=== PATIENT | female | born 1960 | race Hispanic/Latino ===

== ENCOUNTER 2023-09-22 08:39 | Observation (INO) | payer OTHER ==
[2023-09-16 11:38] LABS: BASOPHILS # (AUTO) 0.03 K/uL (0.00-0.20); BASOPHILS % (AUTO) 0.5 % (0.0-5.0); EOSINOPHILS # (AUTO) 0.19 K/uL (0.00-0.70); EOSINOPHILS % (AUTO) 2.9 % (0.0-8.0); HEMATOCRIT 44.1 % (36-48); IMMATURE GRANULOCYTE ABSOLUTE 0.01 K/uL (0-1); LYMPHOCYTES # (AUTO) 1.7 K/uL (1.0-4.8); LYMPHOCYTES % (AUTO) 25.7 % (21.0-51.0); MEAN CORPUSCULAR HEMOGLOBIN 31.6 pg (27.0-33.0); MEAN CORPUSCULAR HGB CONC 32.7 g/dL (32.0-36.0); MEAN CORPUSCULAR VOLUME 96.9 fL (79-99); MONOCYTES # (AUTO) 0.4 K/uL (0.1-1.0); MONOCYTES % (AUTO) 6.2 % (3.0-13.0); NEUTROPHILS # (AUTO) 4.2 K/uL (1.8-7.7); NEUTROPHILS % (AUTO) 64.5 % (40.0-77.0); PLATELET COUNT (AUTO) 147 K/uL (130-400); RED BLOOD CELL COUNT(AUTO) 4.55 MIL/uL (4.00-5.50); RED CELL DISTRIBUTION WIDTH 12.7 % (11.0-15.5); WHITE BLOOD COUNT (AUTO) 6.5 K/uL (4.8-10.8)
[2023-09-16 11:52] LABS: APPEARANCE,URINE CLEAR (CLEAR); BILIRUBIN,URINE NEGATIVE (NEGATIVE); COLOR,URINE LIGHT-YELLOW (YELLOW); GLUCOSE, URINE (UA) NEGATIVE (NEGATIVE); KETONES,URINE NEGATIVE (NEGATIVE); LEUKOCYTE ESTERASE ,URINE 25 Leu/uL (NEGATIVE); NITRATE,URINE NEGATIVE (NEGATIVE); OCCULT BLOOD,URINE NEGATIVE (NEGATIVE); PROTEIN,URINE NEGATIVE (NEGATIVE); UROBILINOGEN,URINE 0.2 mg/dL (0.2-1.0)
[2023-09-16 11:54] LABS: INR 0.95 (0.85-1.15); PROTHROMBIN TIME 11.2 SEC (9.6-11.6)
[2023-09-16 11:55] LABS: PARTIAL THROMBOPLASTIN TIME 25.8 SEC (26.3-35.5)
[2023-09-16 12:01] LABS: ADD UA MICROSCOPIC YES
[2023-09-16 12:04] LABS: BACTERIA,URINE RARE /HPF (None Seen); MUCUS,URINE RARE LPF (None Seen); SQUAMOUS EPITHELIAL CELL,UR FEW /HPF (0-2)
[2023-09-16 12:15] LABS: ALBUMIN 3.9 g/dL (3.5-5.0); CARBON DIOXIDE 28 mmol/L (21-32); CHLORIDE 104 mmol/L (101-111); GLOMERULAR FILTR. RATE CALC 63 mL/min (>90); GLUCOSE,RANDOM 84 mg/dL (70-105); POTASSIUM 3.8 mmol/L (3.5-5.1); SODIUM SERUM 139 mmol/L (136-145); UREA NITROGEN, BLOOD 20 mg/dL (7-18)
[~2023-09-22] VITALS: Ht 162.6 cm; Wt 93.4 kg
[2023-09-22] VITALS (33 sets, daily range): BP systolic 108–177; BP diastolic 58–102; PULSE 57–86; RESP 15–20; O2SAT 97–99
[~2023-09-22 08:39] MED LIST: ATOR10TA69 PO; CYAN25008 SL; GABA300C PO; LEVO25CA4 PO; METO-408 PO; TRAM50TA4 PO
[2023-09-22] MEDS: CEFAZOLIN SODIUM 2 GM VIAL ONE (09:22)
[2023-09-22] MEDS: 0.9%NACL 1000ML 1,000 ML IV ONE (09:27)
[2023-09-22] MEDS ORDERED: KETOROLAC 30MG VIAL (30MG/ML) ONE (09:39)
[2023-09-22] MEDS ORDERED: ROPIVACAINE 0.5% 5MG/ML 30ML ONE ×2 (09:40→10:32)
[2023-09-22] MEDS ORDERED: TRANEXAMIC ACID 1000MG/10ML ONE (10:16)
[2023-09-22] MEDS: FAMOTIDINE 20MG VIAL IV ONE (10:29)
[2023-09-22] MEDS: HYDROMORPHONE 1 MG INJ ONE (10:29)
[2023-09-22] MEDS ORDERED: GLYCOPYRROLATE 0.2 MG/ML 5 ML VIAL ONE (10:36)
[2023-09-22] MEDS ORDERED: ONDANSETRON 4MG INJ ONE (10:36)
[2023-09-22] MEDS ORDERED: LIDOCAINE PF 100MG/5ML (2%) SYRINGE 5ML ONE (10:36)
[2023-09-22] MEDS ORDERED: NEOSTIGMINE METHYLSULFATE 1MG/ML IV ONE (10:36)
[2023-09-22] MEDS ORDERED: MIDAZOLAM HCL 1 MG/ML 2ML VIAL ONE (10:36)
[2023-09-22] MEDS ORDERED: ROCURONIUM BROMIDE 10MG/1ML 5ML VL ONE (10:37)
[2023-09-22] MEDS ORDERED: NOREPINEPHRINE BITARTRATE 1 MG/1 ML ML IV ONE (10:37)
[2023-09-22] MEDS ORDERED: FENTANYL CITRATE PF 50 MCG/1 ML 2ML VIAL ONE (10:39)
[2023-09-22] MEDS ORDERED: PROPOFOL 10 MG/ML 20ML VIAL IV ONE (10:42)
[2023-09-22] MEDS: CEFAZOLIN SODIUM 2 GM VIAL IVPB ONE (12:00)
[2023-09-22] MEDS: KETOROLAC 30MG VIAL (30MG/ML) IJ ONE (13:15)
[2023-09-22] MEDS ORDERED: KCL 20 MEQ ERTAB PO PRN (14:00)
[2023-09-22] MEDS: 0.9%NACL 1000ML 1,000 ML IV SCH (14:00)
[2023-09-22] MEDS ORDERED: TRAMADOL HCL 50 MG TABLET PO PRN (14:00)
[2023-09-22] MEDS ORDERED: POTASSIUM CHLORIDE 20MEQ/100ML 100 ML IV PRN (14:00)
[2023-09-22] MEDS ORDERED: FERROUS FUMARATE 324 MG TABLET PO PRN (14:00)
[2023-09-22] MEDS ORDERED: POTASSIUM CHLORIDE 10% ELIXIR 20 MEQ/15 ML UDCUP PO PRN (14:00)
[2023-09-22] MEDS ORDERED: CALCIUM CARB 500MG PO PRN (14:00)
[2023-09-22] MEDS ORDERED: ONDANSETRON 4MG INJ IVP PRN (14:00)
[2023-09-22] MEDS: KETOROLAC 15MG/ML VIAL (15MG/ML) IV SCH (14:15)
[2023-09-22] MEDS: KETOROLAC 15MG/ML VIAL (15MG/ML) ONE (14:15)
[2023-09-22] MEDS: MEPERIDINE-PF 25 MG/ML SYG ONE (14:24)
[2023-09-22] MEDS: HYDRALAZINE 20MG/ML VIAL ONE (14:40)
[2023-09-22] MEDS: GABAPENTIN 300 MG CAPSULE PO SCH (20:53)
[2023-09-22] MEDS: ATORVASTATIN 10 MG TABLET PO SCH (20:53)
[2023-09-22] MEDS: CEFAZOLIN SODIUM 2 GM VIAL IVPB SCH (20:54)
[2023-09-22] MEDS: DOCUSATE SODIUM 100 MG CAP PO SCH (20:54)
[2023-09-23] VITALS (8 sets, daily range): BP systolic 98–173; BP diastolic 55–96; PULSE 70–92; RESP 16–19; O2SAT 95–96
[2023-09-23 03:38] LABS: HEMATOCRIT 35.7 % (36-48); MEAN CORPUSCULAR HEMOGLOBIN 31.7 pg (27.0-33.0); MEAN CORPUSCULAR HGB CONC 33.3 g/dL (32.0-36.0); MEAN CORPUSCULAR VOLUME 95.2 fL (79-99); RED BLOOD CELL COUNT(AUTO) 3.75 MIL/uL (4.00-5.50); RED CELL DISTRIBUTION WIDTH 12.8 % (11.0-15.5)
[2023-09-23 03:48] LABS: POTASSIUM 3.9 mmol/L (3.5-5.1)
[2023-09-23] MEDS: LEVOTHYROXINE 25 MCG TABLET PO SCH (06:39)
[2023-09-23] MEDS: ASPIRIN 325MG EC TAB PO SCH (08:26)
[2023-09-23] MEDS: METOPROLOL SUCCINATE 25 MG TAB.SR.24H PO SCH (08:26)
[2023-09-23] MEDS: POLYETHYLENE GLYCOL 3350 17 GM POWD.PACK PO SCH (08:26)
[2023-09-23] MEDS: HYDROCODONE/ACETAMINOPHEN 5/325 MG TAB PO PRN (08:29)
[2023-09-23] MEDS: VITAMIN B12 2500 MCG SL SCH (08:31)
[2023-09-23] MEDS ORDERED: NON-FORMULARY MEDICATION 1 EACH (Levothyroxine Sodium (Levothyroxine) 25 MCG) PO SCH (09:00)
[2023-09-23] MEDS: CYCLOBENZAPRINE HCL 10 MG TABLET PO PRN (16:12)
[2023-09-24 03:37] VITALS: BP 104/62; PULSE 79; RESP 16
[2023-09-24 08:00] VITALS: BP 104/72; PULSE 90; RESP 18
[2023-09-24 09:00] VITALS: O2SAT 97
[2023-09-24] MEDS: KETOROLAC 15MG/ML VIAL (15MG/ML) IV PRN (09:20)
[2023-09-24 12:00] VITALS: BP 94/59; PULSE 78; RESP 18
[2023-09-24 16:00] VITALS: BP 145/95; PULSE 80; RESP 19
[2023-09-24] MEDS ORDERED: CYCL-309 PO (16:54)
[2023-09-24] MEDS ORDERED: HYDR-4060 PO (16:54)
[2023-09-24] MEDS ORDERED: DOCU-116 PO (16:54)
[2023-09-24] MEDS ORDERED: APIX2.5T PO (16:54)
[2023-09-25] MEDS ORDERED: BISACODYL 10 MG SUPP.RECT RC PRN (14:00)
== END 2023-09-24 18:45 | disposition home or self-care (01) ==
LOC: DAH 08:39 → DAHIP 08:40 → DAH 08:40 → 4AH 16:30
PROVIDERS: ADMIT Student in an Organized Health Care Education/Training Program; ATTEND Student in an Organized Health Care Education/Training Program
DX: M17.11 Unilateral primary osteoarthritis, right knee (principal); G89.18 Other acute postprocedural pain; I48.91 Unspecified atrial fibrillation; I10 Essential (primary) hypertension; E03.9 Hypothyroidism, unspecified; E11.9 Type 2 diabetes mellitus without complications; M25.561 Pain in right knee; D62 Acute posthemorrhagic anemia; M25.512 Pain in left shoulder; E66.9 Obesity, unspecified; Z68.35 Body mass index [BMI] 35.0-35.9, adult; Z79.01 Long term (current) use of anticoagulants; Z95.3 Presence of xenogenic heart valve; Z79.899 Other long term (current) drug therapy; Z83.79 Family history of other diseases of the digestive system; Z82.49 Family history of ischemic heart disease and other diseases of the circulatory system; Z83.3 Family history of diabetes mellitus; Z79.891 Long term (current) use of opiate analgesic; Z79.890 Hormone replacement therapy; Z98.890 Other specified postprocedural states
CPT/HCPCS: 82040; 80048 ×2; 85025; 85610; 85730; 87088; 84134; 86140; 81001; 36415 ×2; 93005; 87641; 27447; 96365; 96375; 64447; 82948; 73560; 97161; 97116 ×5; 97530 ×5; 96376 ×2; 96366; 85027; G0378 ×48; A4663; J7030 ×2; A4215 ×2; J3490 ×5; J3010; J1170; J2001; J0360; J2250; J2704; J2405; J1885 ×6; J2710; J2175; J2795 ×3; J0690 ×4; G0168; C1776 ×2; A4649; C1713; A4930; A6255; A5120; A4223; A4213; A4222; A4221

== ENCOUNTER 2024-03-10 12:34 | Emergency (ER) | payer OTHER ==
[~2024-03-10] VITALS: Ht 165.1 cm; Wt 95.3 kg
[~2024-03-10 12:34] MED LIST changes: +APIX2.5T PO; +CYCL-309 PO; +DOCU-116 PO; +HYDR-4060 PO; -TRAM50TA4 PO
--- NOTE | 2024-03-10 13:05 | ERN ---
General Chief Complaint: Mechanical Fall Stated Complaint: FALL Time Seen by MD: 12:35 Source: patient History of Present Illness Initial Comments Patient is a 63-year-old female coming in to be evaluated after she slipped and hit herself in the left side of forehead. Patient does state that she hit herself in the head in his currently on Eliquis so decided to be evaluated. Allergies: Coded Allergies: No Known Drug Allergies (Unverified Allergy, Unknown, 09/16/23) Home Meds Active Scripts Apixaban (Eliquis) 2.5 Mg Tablet, 2.5 MG PO BID for 30 Days, #60 0 Refills Prov:WILLIAMS DUKES MD 09/24/23 Hydrocodone/Acetaminophen (Hydrocodon-Acetaminophen 5-325) 5 Mg-325 Mg Tablet, 1-2 TAB PO Q4H PRN for MODERATE/SEVERE PAIN LEVEL, #56 TAB 0 Refills Prov:WILLIAMS DUKES MD 09/24/23 Docusate Sodium (Colace) 100 Mg Capsule, 100 MG PO BID for 30 Days, #60 CAP 0 Refills Prov:WILLIAMS DUKES MD 09/24/23 Cyclobenzaprine HCl (Cyclobenzaprine HCl) 10 Mg Tablet, 5 MG PO Q8H PRN for MUSCLE SPASMS, #45 TAB 0 Refills Prov:WILLIAMS DUKES MD 09/24/23 Reported Medications Metoprolol Succinate (Metoprolol Succinate) 25 Mg Tab.er.24h, 50 MG PO AM, TAB 09/16/23 Cyanocobalamin (Vitamin B-12) (B-12) 2,500 Mcg Lozenge, 2500 MCG SL AM, CLAU 09/16/23 Levothyroxine Sodium (Levothyroxine) 25 Mcg Capsule, 25 MCG PO AM, CAP 09/16/23 Gabapentin (Neurontin) 300 Mg Capsule, 300 MG PO BID, CAP 09/16/23 Atorvastatin Calcium (Atorvastatin Calcium) 10 Mg Tablet, 10 MG PO HS, TAB 09/16/23 Past Medical History Past Medical History: Diabetes-Type II, High Cholesterol, Hypertension Past Surgical History: Other Surgical History Other: R KNEE SX ROS Dictation CONSTITUTIONAL: No chills, no fever, no weakness, no diaphoresis, no malaise. HEAD/FACE: No signs of trauma. EENT: No eye pain, no blurred vision, no tearing, no double vision, no ear pain, no ear discharge, no nose pain, no nasal congestion, no throat pain, no throat swelling, no mouth pain. RESPIRATORY: No cough, no orthopnea, no SOB, no stridor, no wheezing. CARDIOVASCULAR: No chest pain, no edema, no palpitations, no syncope. GASTROINTESTINAL/ABDOMINAL: No abdominal pain, no constipation, no diarrhea, no nausea, no vomiting. GENITOURINARY: No abnormal discharge, no dysuria, no frequent urination, no hematuria. No complaints of pain in the genitals. MUSCULOSKELETAL: No back pain, no gout, no joint pain, no joint swelling, no muscle pain, no muscle stiffness, no neck pain. INTEGUMENTARY: No change in color, no change in hair/nails, no dryness, no lesion, no lumps, no rash. NEUROLOGICAL/PSYCH: No anxiety, not depressed, no emotional problem, no headache, no numbness, no pre-existing deficit, no history of seizures, no tremors, no weakness. HEMATOLOGIC/LYMPHATIC: Not anemic, no history of blood clots, no apparent bleeding, no bruising, glands not swollen. All Systems Negative, Except as Noted. Physical Exam Physical Exam Dictation VITAL SIGNS: Reviewed. GENERAL APPEARANCE: Alert, oriented x3, no acute distress, obese. HEAD AND FACE: Non-traumatic. Left forehead erythema EYES: PERRL, pink conjunctivas, eyelid no trauma, anterior chamber clear. EARS: Pinnas intact and no signs of trauma or erythema. Ear canals clear and no discharge. TMs no erythema. NOSE: No discharge, no bleeding. OROPHARYNX: Mouth normal, teeth no caries, tongue pink. Pharynx clear, no erythema. Tonsils no exudates, no abscesses noted. Mucous membrane moist. NECK: Supple, non-tender, no thyromegaly, no masses, no JVD, no bruits. BREAST: Deferred. CHEST: No tenderness, no crepitus, no paradoxical movement, no retractions. LUNGS: Clear, well-ventilated, symmetric, no rales, no wheezing, no rhonchi, no stridor, good breath sounds bilaterally. HEART: Regular rate, regular rhythm, no murmur, no gallops. VASCULAR: No peripheral edema. ABDOMEN: Soft, positive bowel sounds, nondistended, no guarding, nontender, no rebound, no masses no hepatomegaly, no splenomegaly, no Velarde's sign, no hernia s. RECTAL: Deferred. GENITAL: Deferred. NEUROLOGICAL: Normal speech, gross motor function intact, gross sensory function intact. MUSCULOSKELETAL: Neck nontender, full range of motion, back nontender, full range of motion. No neck tenderness on palpation rotation EXTREMITIES: Nontender, full range of motion. SKIN: Color pink, dry, no turgor, no rash, no lacerations, no abrasions, no contusions. LYMPHATICS: Deferred. Results Laboratory and Microbiology Labs Reviewed?: Yes EKG/XRAY/US/CT/MRI X-RAY Comment [place] [id number] [address] IMAGING REPORT Signed PATIENT: ILEANA ROMERO MR#: [id number] : 1960 SEX: F AGE: 63 LOCATION: ED ORDER 35 STATUS: [facility] REPORT#: [id number] SERVICE 123 REASON: fall ORDERING PHYSICIAN: HELLEN COLLIER MD PROCEDURE: CXR1VW - CHEST 1VW CHEST 1VW REASON: fall COMPARISON: None. FINDINGS: Single view of the chest was obtained. Lungs are clear. There is mild cardiomegaly. There is no pulmonary vascular congestion. Mediastinum and bony thorax appear unremarkable. There is been a previous median sternotomy. IMPRESSION: 1. Mild cardiomegaly, no acute finding. DICTATED BY: ABBI KAUFMAN MD DATE: 03/10/24 1308 ELECTRONICALLY SIGNED BY: ABBI KAUFMAN MD DATE: 03/10/24 1311 [place] [id number] [address] IMAGING REPORT Signed PATIENT: ILEANA ROMERO MR#: [id number] : 1960 SEX: F AGE: 63 LOCATION: ED ORDER 1236 STATUS: [facility] REPORT#: [id number] SERVICE 1236 REASON: fall ORDERING PHYSICIAN: HELLEN COLLIER MD PROCEDURE: CERV 2 3VW - CERV SPINE 2-3VWS Exam: CERVICAL SPINE 2 VIEWS REASON: fall TECHNIQUE: 3 views were obtained. FINDINGS: There are normal appearing vertebral bodies. There is marked interspace narrowing through CT 6. There are degenerative changes in the facets. Vertebral body alignment is normal. There are no fractures. Soft tissues appear unremarkable. There are no visible fractures. Soft tissues appear unremarkable. IMPRESSION: 1. Marked cervical degenerative changes. DICTATED BY: ABBI KAUFMAN MD DATE: 03/10/24 1333 ELECTRONICALLY SIGNED BY: ABBI KAUFMAN MD DATE: 03/10/[address] Scan Comment IMAGING REPORT Signed PATIENT: ILEANA ROMERO MR#: [id number] : 1960 SEX: F AGE: 63 LOCATION: EDH ORDER 1236 STATUS: [facility] REPORT#: [id number] SERVICE 1236 REASON: fall ORDERING PHYSICIAN: HELLEN COLLIER MD PROCEDURE: HEAD WO - CT HEAD/BRAIN W/O CONTRAST Exam: NONCONTRAST CT BRAIN REASON: fall. COMPARISON: None. TECHNIQUE: Images are obtained from vertex to the skull base. The exam was performed without IV contrast. FINDINGS: There is normal appearing brain parenchyma. There are no focal mass lesions. There is is no evidence of intracranial hemorrhage or acute stroke. Ventricles and sulci appear normal. Posterior fossa and brainstem structures are unremarkable. Paranasal sinuses and remaining extracranial soft tissues appear normal as well. IMPRESSION: 1. Normal noncontrast CT brain. CT was performed with one or more following dose reduction techniques: automated exposure control, adjustment of the mA and kv according to patient's size, or use of a iterative reconstruction technique. DICTATED BY: ABBI KAUFMAN MD DATE: 03/10/24 1309 ELECTRONICALLY SIGNED BY: ABBI KAUFMAN MD DATE: 03/10/24 1311 [facility] MDM: Differential diagnosis: Fall, head contusion, ED Course Orders Procedure Category Date Status Time Ct Head/Brain W/O CT 03/10/24 Resulted Contrast 12:36 Chest 1vw RAD 03/10/24 Resulted 12:36 Cerv Spine 2-3vws RAD 03/10/24 Resulted 12:36 Vital Signs Date Time Temp Pulse Resp B/P (MAP) Pulse Ox O2 Delivery O2 Flow Rate FiO2 03/10/24 12:40 98.2 109 16 138/91 98 Room Air 0 Laceration/Wound Repair Laceration/Wound Repair : Wound Location: face Wound Length (cm): 1 Wound's Depth, Shape: superficial Wound Explored: clean Wound Repaired With: Steri-strips DX & DISP Disposition: Discharge Departure Impression: Primary Impression: Fall Additional Impression: Eyebrow laceration Condition: Stable Additional Instructions: FOLLOW-UP WITH PRIMARY CARE PROVIDER IN 1 TO 2 DAYS. TAKE MEDICATIONS DIRECTED HERE IN THE EMERGENCY ROOM. OKAY TO CONTINUE HOME MEDICATIONS UNLESS OTHERWISE DISCUSSED DURING YOUR VISIT IN THE EMERGENCY ROOM TODAY. RETURN TO YOUR NEAREST EMERGENCY ROOM IF SYMPTOMS WORSEN OR IF THERE IS NO IMPROVEMENT. CALL 911 IF YOU NEED IMMEDIATE ASSISTANCE. TAKE TYLENOL LUZE-LGB-GHQSFIA NEEDED AND IF NO CONTRAINDICATIONS ARE PRESENT. INCREASE ORAL HYDRATION. A WOUND CULTURE OR URINE CULTURE WAS ORDERED HERE IN THE EMERGENCY ROOM DEPARTMENT PLEASE FOLLOW-UP WITH PRIMARY CARE PROVIDER AND ADVISE THEM TO GET REPEAT PORTS FROM OUR FACILITY. IF YOU HAD ANY IRIS WRAP/SPLINTS THAT WERE APPLIED HERE, PLEASE DO NOT REMOVE THEM UNTIL YOU SEE YOUR PRIMARY CARE OR SPECIALTY. Referrals: Referrals: LATASHA TURCIOS MD (PCP) Time of Disposition: 14:09 HELLEN COLLIER MD Mar 10, 2024 13:05
--- NOTE | 2024-03-10 13:11 | HMCIMG ---
Exam: NONCONTRAST CT BRAIN REASON: fall. COMPARISON: None. TECHNIQUE: Images are obtained from vertex to the skull base. The exam was performed without IV contrast. FINDINGS: There is normal appearing brain parenchyma. There are no focal mass lesions. There is is no evidence of intracranial hemorrhage or acute stroke. Ventricles and sulci appear normal. Posterior fossa and brainstem structures are unremarkable. Paranasal sinuses and remaining extracranial soft tissues appear normal as well. IMPRESSION: 1. Normal noncontrast CT brain. CT was performed with one or more following dose reduction techniques: automated exposure control, adjustment of the mA and kv according to patient's size, or use of a iterative reconstruction technique.
--- NOTE | 2024-03-10 13:11 | HMCIMG ---
CHEST 1VW REASON: fall COMPARISON: None. FINDINGS: Single view of the chest was obtained. Lungs are clear. There is mild cardiomegaly. There is no pulmonary vascular congestion. Mediastinum and bony thorax appear unremarkable. There is been a previous median sternotomy. IMPRESSION: 1. Mild cardiomegaly, no acute finding.
--- NOTE | 2024-03-10 13:37 | HMCIMG ---
Exam: CERVICAL SPINE 2 VIEWS REASON: fall TECHNIQUE: 3 views were obtained. FINDINGS: There are normal appearing vertebral bodies. There is marked interspace narrowing through CT 6. There are degenerative changes in the facets. Vertebral body alignment is normal. There are no fractures. Soft tissues appear unremarkable. There are no visible fractures. Soft tissues appear unremarkable. IMPRESSION: 1. Marked cervical degenerative changes.
[2024-03-10 14:55] VITALS: BP 164/90; PULSE 78; RESP 18; TEMP 98.2; O2SAT 98
== END 2024-03-10 14:56 | disposition home or self-care (01) ==
LOC: EDH 12:34
DX: S01.112A Laceration without foreign body of left eyelid and periocular area, initial encounter (principal); E11.9 Type 2 diabetes mellitus without complications; E78.00 Pure hypercholesterolemia, unspecified; I10 Essential (primary) hypertension; Z79.01 Long term (current) use of anticoagulants; Z98.890 Other specified postprocedural states; W01.198A Fall on same level from slipping, tripping and stumbling with subsequent striking against other object, initial encounter; Y93.89 Activity, other specified; Y92.89 Other specified places as the place of occurrence of the external cause; Y99.8 Other external cause status
CPT/HCPCS: 70450; 71045; 72040; 99284

== ENCOUNTER 2024-03-15 05:57 | Day surgery (SDC) | payer OTHER ==
[2024-03-14 13:00] LABS: BASOPHILS # (AUTO) 0.02 K/uL (0.00-0.20); BASOPHILS % (AUTO) 0.3 % (0.0-5.0); EOSINOPHILS # (AUTO) 0.11 K/uL (0.00-0.70); EOSINOPHILS % (AUTO) 1.8 % (0.0-8.0); HEMATOCRIT 45.4 % (36-48); IMMATURE GRANULOCYTE ABSOLUTE 0.01 K/uL (0-1); LYMPHOCYTES # (AUTO) 1.1 K/uL (1.0-4.8); LYMPHOCYTES % (AUTO) 18.1 % (21.0-51.0); MEAN CORPUSCULAR HEMOGLOBIN 29.8 pg (27.0-33.0); MEAN CORPUSCULAR HGB CONC 30.2 g/dL (32.0-36.0); MEAN CORPUSCULAR VOLUME 98.7 fL (79-99); MONOCYTES # (AUTO) 0.4 K/uL (0.1-1.0); NEUTROPHILS # (AUTO) 4.6 K/uL (1.8-7.7); NEUTROPHILS % (AUTO) 73.6 % (40.0-77.0); PLATELET COUNT (AUTO) 163 K/uL (130-400); RED CELL DISTRIBUTION WIDTH 13.2 % (11.0-15.5); WHITE BLOOD COUNT (AUTO) 6.2 K/uL (4.8-10.8)
[2024-03-14 13:15] LABS: CREATININE 1.2 mg/dL (0.5-1.0); POTASSIUM 4.4 mmol/L (3.5-5.1)
[2024-03-14 13:16] VITALS: PULSE 94; RESP 18; TEMP 97.4
[2024-03-14 13:33] LABS: B-TYPE NATRIURETIC PEPTIDE 72 pg/mL (0-100)
[2024-03-15] VITALS (13 sets, daily range): BP systolic 142–170; BP diastolic 91–112; PULSE 65–93; RESP 16–17; TEMP 97.2–98
[~2024-03-15] VITALS: Ht 162.6 cm; Wt 91.8 kg
[~2024-03-15 05:57] MED LIST changes: -APIX2.5T PO; +APIX5TAB PO; +CETI10TA57 PO; -CYAN25008 SL; -CYCL-309 PO; -DOCU-116 PO; +FLEC50TA3 PO; -HYDR-4060 PO; -LEVO25CA4 PO; +LEVO25TA54 PO; -METO-408 PO; +VITAMIN B12 PO
--- NOTE | 2024-03-15 06:36 | EKG ---
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
[2024-03-15] MEDS: 0.9%NACL 1000ML 1,000 ML IV ONE (07:51)
[2024-03-15] MEDS: MIDAZOLAM HCL 1 MG/ML 2ML VIAL IVP ONE (08:32)
[2024-03-15] MEDS: FENTanyl CITRate PF 50 MCG/1 ML 2ML VIAL IVP ONE (08:32)
--- NOTE | 2024-03-15 08:50 | PRN ---
Procedure: [facility] Cardioversion Procedure Note DATE OF PROCEDURE: Mar 15, 2024 PROCEDURE PERFORMED: DIRECT-CURRENT CARDIOVERSION, CONSCIOUS SEDATION PREFORMING PHYSICIAN: Dr. Cody Gonzalez, [facility] INDICATION: Persistent atrial fibrillation PROCEDURE NOTE: After informed consent was obtained, and time-out procedure performed, as well as verification of resuscitative equipment availability, the patient was sedated with 2 mg of Versed and 50 mcg of fentanyl administered in incremental doses. When adequate sedation was obtained the patient underwent direct-current cardioversion with 200 J of synchronized, biphasic, direct-current energy to sinus rhythm. The patient tolerated the procedure well. There were no immediate complications noted. COMPLICATIONS: None, the patient tolerated the procedure well and there were no immediate comp lications noted. She persisted in sinus rhythm for several minutes of monitoring at bedside and this was confirmed on twelve-lead EKG. DISCHARGE RECOMMENDATIONS: Continue home medications, including flecainide 50 mg twice a day. Follow-up at [facility] within 1 week, with an EKG on arrival. CODY GONZALEZ MD Mar 15, 2024 08:50
--- NOTE | 2024-03-15 08:52 | NUR ---
CARDIOVERSION PROCEDURE 0825 - TIME OUT, DOMINGO EPSTEIN RN, [facility] PRESENT 0830 - VERSED 1 GM, FENTANYL 50 MCG, IVP 0832 - VERSED 1 GM, FENTANYL 50 MCG, IVP 0834 - CARDIOVERSION 200 JOULES 0835 - PT AWAKE, ALERT AND ORIENTED
--- NOTE | 2024-03-15 09:31 | EKG ---
[facility] Test Date: 2024-03-15 Test Time: 09:35:30 Pat Name: ILEANA ROMERO Department: [facility] Room: [facility] Gender: F Studio Grip: [id number] : 1960 Requested By: BYRON GONZALEZ Order Number: [id number] Reading MD: Radha Magana Measurements Intervals [place] Rate: 66 P: 39 MD: 234 QRS: 31 QRSD: 85 T: 65 QT: 453 QTc: 474 Interpretive Statements Sinus rhythm Prolonged MD interval Low voltage, precordial leads Compared to ECG 03/15/2024 07:22:42 First degree AV block now present Low QRS voltage now present Atrial fibrillation no longer present Prolonged QT interval no longer present Electronically Signed On 03-16-2024 17:34:46 RESPIRATORY CARE PRACTITIONER by Radha Magana Please click the below link to view image of tracing.
== END 2024-03-15 09:50 | disposition home or self-care (01) ==
LOC: DAH 05:57
PROVIDERS: ATTEND Internal Medicine Cardiovascular Disease
DX: I48.19 Other persistent atrial fibrillation (principal); I48.0 Paroxysmal atrial fibrillation; I44.0 Atrioventricular block, first degree; I10 Essential (primary) hypertension; E11.9 Type 2 diabetes mellitus without complications; E03.9 Hypothyroidism, unspecified; E66.9 Obesity, unspecified; Z90.710 Acquired absence of both cervix and uterus; Z90.49 Acquired absence of other specified parts of digestive tract; Z95.3 Presence of xenogenic heart valve; Z68.35 Body mass index [BMI] 35.0-35.9, adult; Z79.01 Long term (current) use of anticoagulants; Z79.899 Other long term (current) drug therapy
CPT/HCPCS: 83735; 80048; 83880; 85025; 36415; 92960; 93005 ×2; J3010; J7030; J2250; A4615; A4215; A4223 ×3; A7002; A4222; A4221; A4663; A4216; A4606; 99152; G0500

== ENCOUNTER 2024-03-29 09:34 | Day surgery (SDC) | payer OTHER ==
[2024-03-27 13:46] LABS: BASOPHILS # (AUTO) 0.01 K/uL (0.00-0.20); BASOPHILS % (AUTO) 0.2 % (0.0-5.0); EOSINOPHILS # (AUTO) 0.16 K/uL (0.00-0.70); EOSINOPHILS % (AUTO) 2.6 % (0.0-8.0); HEMATOCRIT 43.5 % (36-48); IMMATURE GRANULOCYTE ABSOLUTE 0.01 K/uL (0-1); LYMPHOCYTES # (AUTO) 1.4 K/uL (1.0-4.8); LYMPHOCYTES % (AUTO) 22.3 % (21.0-51.0); MEAN CORPUSCULAR HEMOGLOBIN 29.2 pg (27.0-33.0); MEAN CORPUSCULAR HGB CONC 31.3 g/dL (32.0-36.0); MEAN CORPUSCULAR VOLUME 93.3 fL (79-99); MONOCYTES # (AUTO) 0.5 K/uL (0.1-1.0); MONOCYTES % (AUTO) 7.3 % (3.0-13.0); NEUTROPHILS # (AUTO) 4.1 K/uL (1.8-7.7); NEUTROPHILS % (AUTO) 67.4 % (40.0-77.0); PLATELET COUNT (AUTO) 175 K/uL (130-400); RED BLOOD CELL COUNT(AUTO) 4.66 MIL/uL (4.00-5.50); WHITE BLOOD COUNT (AUTO) 6.1 K/uL (4.8-10.8)
[2024-03-27 13:54] LABS: CREATININE 1.2 mg/dL (0.5-1.0); POTASSIUM 4.3 mmol/L (3.5-5.1)
[2024-03-27 13:56] VITALS: BP_SYST 160; BP_SYST 189; BP_DIAS 101; BP_DIAS 86; PULSE 93; RESP 16; TEMP 97.3
[2024-03-27 13:57] LABS: INR 1.11 (0.85-1.15); PROTHROMBIN TIME 11.9 SEC (9.6-11.6)
[2024-03-27 13:58] LABS: PARTIAL THROMBOPLASTIN TIME 30.2 SEC (26.3-35.5)
[~2024-03-29] VITALS: Ht 160 cm; Wt 93.1 kg
[~2024-03-29 09:34] MED LIST changes: -CETI10TA57 PO; +CETI10TA87 PO; +FLEC100T3 PO; -FLEC50TA3 PO
--- NOTE | 2024-03-29 09:59 | EKG ---
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
[2024-03-29] MEDS ORDERED: FENTanyl CITRate PF 50 MCG/1 ML 2ML VIAL IVP ONE (10:00)
[2024-03-29] MEDS ORDERED: MIDAZOLAM HCL 1 MG/ML 2ML VIAL IVP ONE (10:00)
--- NOTE | 2024-03-29 11:00 | NUR ---
DR. GONZALEZ/LINO PA MADE AWARE SAW PTS NSR EKG. PER LINO GONZALEZ WILL SPEAK WITH THE PT AND WILL BE OK TO DISCHARGED.
--- NOTE | 2024-03-29 11:01 | NUR ---
PT AND FAMILY MEMBER AT BEDSIDE EXPLAINED CURRENT EKG AND PT TOLD TO CONTINUE HER CURRENT RX REGIMENT
--- NOTE | 2024-03-29 11:30 | NUR ---
PT OK TO BE DISCHARGED HOME AND FOLLOW UP WITH DR. GONZALEZ SCHEDULED.
== END 2024-03-29 11:34 | disposition home or self-care (01) ==
LOC: DAH 09:34
PROVIDERS: ATTEND Internal Medicine Cardiovascular Disease
DX: I48.19 Other persistent atrial fibrillation (principal); I10 Essential (primary) hypertension; E03.9 Hypothyroidism, unspecified; E11.9 Type 2 diabetes mellitus without complications; E66.9 Obesity, unspecified; Z90.49 Acquired absence of other specified parts of digestive tract; Z90.710 Acquired absence of both cervix and uterus; Z68.35 Body mass index [BMI] 35.0-35.9, adult; Z79.899 Other long term (current) drug therapy; Z53.8 Procedure and treatment not carried out for other reasons
CPT/HCPCS: 36415; 80048; 85025; 85610; 85730; 93005

== ENCOUNTER 2024-06-12 08:35 | Observation (INO) | payer OTHER ==
[2024-06-07 12:25] LABS: BASOPHILS # (AUTO) 0.03 K/uL (0.00-0.20); BASOPHILS % (AUTO) 0.5 % (0.0-5.0); EOSINOPHILS # (AUTO) 0.17 K/uL (0.00-0.70); EOSINOPHILS % (AUTO) 2.9 % (0.0-8.0); HEMATOCRIT 42.7 % (36-48); IMMATURE GRANULOCYTE ABSOLUTE 0.02 K/uL (0-1); LYMPHOCYTES # (AUTO) 1.1 K/uL (1.0-4.8); LYMPHOCYTES % (AUTO) 19.3 % (21.0-51.0); MEAN CORPUSCULAR HEMOGLOBIN 29.7 pg (27.0-33.0); MEAN CORPUSCULAR HGB CONC 32.6 g/dL (32.0-36.0); MEAN CORPUSCULAR VOLUME 91.2 fL (79-99); MONOCYTES # (AUTO) 0.5 K/uL (0.1-1.0); MONOCYTES % (AUTO) 7.7 % (3.0-13.0); NEUTROPHILS # (AUTO) 4.1 K/uL (1.8-7.7); NEUTROPHILS % (AUTO) 69.3 % (40.0-77.0); PLATELET COUNT (AUTO) 191 K/uL (130-400); RED BLOOD CELL COUNT(AUTO) 4.68 MIL/uL (4.00-5.50); RED CELL DISTRIBUTION WIDTH 14.6 % (11.0-15.5); WHITE BLOOD COUNT (AUTO) 5.9 K/uL (4.8-10.8)
[2024-06-07 12:27] LABS: APPEARANCE,URINE CLEAR (CLEAR); BILIRUBIN,URINE NEGATIVE (NEGATIVE); COLOR,URINE LIGHT-YELLOW (YELLOW); GLUCOSE, URINE (UA) NEGATIVE (NEGATIVE); KETONES,URINE NEGATIVE (NEGATIVE); LEUKOCYTE ESTERASE ,URINE NEGATIVE Leu/uL (NEGATIVE); NITRATE,URINE NEGATIVE (NEGATIVE); OCCULT BLOOD,URINE NEGATIVE (NEGATIVE); PH,URINE 6.5 (5.0-8.0); PROTEIN,URINE NEGATIVE (NEGATIVE); UROBILINOGEN,URINE 0.2 mg/dL (0.2-1.0)
[2024-06-07 12:40] LABS: PROTHROMBIN TIME 11.2 SEC (9.6-11.6)
[2024-06-07 12:42] LABS: PARTIAL THROMBOPLASTIN TIME 27.6 SEC (26.3-35.5)
[2024-06-07 12:43] LABS: ADD UA MICROSCOPIC NO
[2024-06-07 12:43] LABS: POTASSIUM 4.2 mmol/L (3.5-5.1)
[2024-06-07 13:07] VITALS: BP 193/102; PULSE 77; RESP 16; TEMP 98.1
[~2024-06-12] VITALS: Ht 162.6 cm; Wt 98.3 kg
[2024-06-12] VITALS (36 sets, daily range): BP systolic 88–184; BP diastolic 54–101; PULSE 71–99; RESP 15–19; TEMP 97.1–98.4; O2SAT 97
[~2024-06-12 08:35] MED LIST changes: +ACET-2743 PO; -FLEC100T3 PO; +FLEC50TA3 PO
[2024-06-12] MEDS ORDERED: TRANEXAMIC ACID 1000MG/10ML ONE (09:38)
[2024-06-12] MEDS: 0.9%NACL 1000ML 1,000 ML IV ONE (09:51)
[2024-06-12] MEDS: ceFAZolin SODIUM 2 GM VIAL ONE (09:51)
[2024-06-12] MEDS ORDERED: LIDOCAINE HCL-MPF 2% 10ML AMP IJ ONE (10:15)
[2024-06-12] MEDS ORDERED: rocuRONium bROMide 10MG/1ML 5ML VL ONE (10:16)
[2024-06-12] MEDS ORDERED: FENTanyl CITRate PF 50 MCG/1 ML 2ML VIAL ONE (10:16)
[2024-06-12] MEDS ORDERED: proPOFol 10 MG/ML 20ML VIAL IV ONE (10:16)
[2024-06-12] MEDS ORDERED: ROPivacaine 0.5% 5MG/ML 30ML ONE (10:22)
[2024-06-12] MEDS ORDERED: ketaMINE 50MG/ML SYRINGE 50 MG/ML DISP.SYRIN ONE (10:22)
[2024-06-12] MEDS ORDERED: dexaMETHasone SOD PHOSPHATE 10MG/ML 1ML VIAL ONE (10:55)
[2024-06-12] MEDS ORDERED: ondanSETRON 4MG INJ ONE (10:55)
[2024-06-12] MEDS ORDERED: phenylEPHRINE HCL 10 MG/ML 1ML VIAL IV ONE (11:14)
[2024-06-12] MEDS ORDERED: FERROUS FUMARATE 324 MG TABLET PO PRN (11:30)
[2024-06-12] MEDS ORDERED: DiphenhydrAMINE HCL 50 MG/ML VIAL IVP PRN (11:30)
[2024-06-12] MEDS ORDERED: traMADol HCL 50 MG TABLET PO PRN (11:30)
[2024-06-12] MEDS ORDERED: PoTASSium chl 10% ELIXIR 20MEQ 20 MEQ/15 ML UDCUP PO PRN (11:30)
[2024-06-12] MEDS ORDERED: PoTASSium chloRIDE 20MEQ ER 20 MEQ ERTAB PO PRN (11:30)
[2024-06-12] MEDS ORDERED: PoTASSium chloRIDE 20MEQ/100ML 100 ML IV PRN (11:30)
[2024-06-12] MEDS ORDERED: ondanSETRON 4MG INJ IVP PRN (11:30)
[2024-06-12] MEDS ORDERED: CALCIUM CARB 500MG PO PRN (11:30)
[2024-06-12] MEDS: ketOROlac 30MG VIAL (30MG/ML) ONE (12:45)
[2024-06-12] MEDS: ROPivacaine 0.5% 5MG/ML 30ML ONE (12:45)
[2024-06-12] MEDS ORDERED: GLYCOPYRROLATE 0.2 MG/ML 5 ML VIAL ONE (13:10)
[2024-06-12] MEDS ORDERED: NEOSTIGMINE METHYLSULFATE 1MG/ML IV ONE (13:10)
[2024-06-12] MEDS ORDERED: hydrALAZine 20MG/ML VIAL ONE (13:18)
--- NOTE | 2024-06-12 13:34 | OP ---
Operative Note: DATE OF PROCEDURE: 06/12/24 PREOPERATIVE DIAGNOSIS: Left knee osteoarthritis. POSTOPERATIVE DIAGNOSIS: Left knee osteoarthritis. PROCEDURE PERFORMED: Left knee total knee arthroplasty. SURGEON: Osiris Oro MD DRAPERY ROD ASSEMBLER: Karsten westbrook. ANESTHESIA: General with adductor canal block. ANESTHESIA: NURIS Bella. ESTIMATED BLOOD LOSS: 75 cc. COMPLICATIONS: None. DRAINS: None. SPECIMENS REMOVED: resected bone. Not sent to pathology. IMPLANTS: [employer] Journey II BCS size 4 Oxinium femur, size 4 tibial base plate, 29 mm patella, 12 mm polyethylene STATEMENT OF MEDICAL NECESSITY: The patient is a 64-year-old female who suffers from left knee osteoarthritis failing conservative management. After discussion of the risks, benefits, and alternatives with the patient, they voluntarily agreed to undergo the aforementioned procedure. DESCRIPTION OF PROCEDURE: Patient was properly identified in the preoperative holding area. Surgical site marking was verified and surgery consent reviewed. The patient was then taken to the operating room and placed in supine position on the OR table. After induction of general anesthesia, preoperative antibiotics were given, all bony prominences were well-padded, and a well padded tourniquet was applied but not inflated at this time. The left lower extremity was then prepped and draped in usual sterile fashion. Surgical time out was done verifying correct surgery, side, site, and location to be performed. We then began the procedure by exsanguinating the limb using an Esmarch and inflating the tourniquet to 350 mmHg. At this point, we made an anterior midline incision using a 10 blade, coming down sharply the level of the fascia. Skin flaps were elevated medially and laterally. We then obtained a clean 10 blade and performed a standard medial parapatellar arthrotomy. We excised the infrapatellar fat pad. We performed our soft tissue releases off of the tibia. We transected the ACL and removed the anterior portion of the medial & lateral meniscus. We then brought the knee into hyperflexion with the patella everted. We used our entry reamer to enter the femoral canal. We then placed our intramedullary cutting guide for our distal femoral cutting block. We then performed our distal femoral osteotomy ensuring appropriate rotation and removed the bony wafer. We then removed these pins and block and then used jig 2 to size the distal femur with the after mentioned size found. We then placed our 5-in-1 cutting block in 3 degrees of external rotation and took our 5 cuts ensuring to protect the patellar tendon and the collateral ligaments. We then removed the cutting block and our bony fragments using a curved osteotome. We then placed our PCL retractor subluxating the tibia anteriorly. Using an extra medullary tibial cutting guide, we hung the block for our proximal tibial cut taking 2 mm off the more diseased portion. Prior to pinning this block in place, we ensured appropriate varus/valgus alignment and posterior slope similar to the minto slope of the patient's knee. We then performed our proximal tibial osteotomy and removed the bony wafer using Bovie electrocautery to release any remaining soft tissue attachments. We then used our tibial sizing paddle and checked once more for varus & valgus alignment and found this to be appropriate. At this point, we pinned our tibial paddle in place. We then removed the PCL retractor and subluxated the tibia posteriorly while we placed our femoral trial component. We then finished preparing the notch with the reamer and box chisel. The notch portion of the trial femoral component was then placed. A posterior stabilized polyethylene, size 9 trial was placed. This was immediately increased up to a size 11 due to laxity with varus and valgus stress. The knee was then taken through range of motion and found to have stable full range of motion. We then placed a bump under the ankle and everted the patella to perform our freehand cut of the undersurface the patella. We then sized our patella and reamed to the lug holes for this. We placed our trial patellar component and begin to take the knee through range of motion. The patella had significant lateral tracking and we performed a lateral release. At this point we began removing our trial components and punched the tibial keel prior to removing our tibial trial component. Final components were opened and cement was mixed on the back table while we injected local cocktail in the posterior capsule. We then thoroughly irrigated out the bone and dried the bony surfaces. We cemented our tibial component in place ensuring to remove excess cement and placed our trial polyethylene. We then cemented our femoral component in place once again taking time to ensure excess cement was removed leg was brought into full extension to help squeeze the excess cement from around the femoral component. We then brought the knee back in a flexion to remove this portion of the cement at this point we placed the ankle in a bump thoroughly irrigated off the patellar component and cemented our patellar component in standard fashion again removing excess cement. While we waited for the cement to cure, we thoroughly irrigated out the wound with normal saline. Once our cement had cured, we took the knee through a range of motion and found full and stable range of motion. We then elected to use the size 12 polyethylene and removed our trial polyethylene. We impacted our final polyethylene component in place in standard fashion and took the knee through a range of motion check once more. This was satisfactory so we began to repair the arthrotomy using #1 Vicryl in interrupted [id number] fashion. Subcutaneous tissue was repaired using 2-0 Vicryl. Running subcuticular 3-0 Monocryl stitch with Dermabond placed over this for the skin. We then applied a foam barrier dressing and a pressure dressing consisting of 4 x 4's fluffs and an David wrap. The tourniquet was then deflated. Patient was awakened from anesthesia, and they were taken to the recovery room in stable condition. OSIRIS ORO MD Jun 12, 2024 13:34
[2024-06-12] MEDS: FENTanyl CITRate PF 50 MCG/1 ML 2ML VIAL ONE (14:00)
[2024-06-12] MEDS: HYDROcodone/APAP 5/325 1 TAB TABLET ONE (14:25)
[2024-06-12] MEDS: ketOROlac 15MG/ML VIAL (15MG/ML) ONE ×2 (14:33→21:11)
[2024-06-12] MEDS: CYCLOBENZAPRINE HCL 10 MG TABLET PO PRN (14:36)
--- NOTE | 2024-06-12 14:43 | HMCIMG ---
KNEE/PATELLA 1-2VWS LT REASON: S/P LEFT TKA SURGERY TECHNIQUE: 2 views were obtained. FINDINGS: There is a total joint prosthesis in place left knee. Remaining bone appears unremarkable. There are surgical changes in the soft tissues. There are no foreign bodies. IMPRESSION: 1. Documentation of left knee total joint replacement procedure.
[2024-06-12] MEDS: GABApentin 100 MG CAPSULE PO SCH (14:55)
--- NOTE | 2024-06-12 15:22 | DS ---
Discharge Summary Hospital Course Summary: The patient was admitted to the hospital postoperatively on 06/12/2024 after undergoing left total knee arthroplasty. They did well with routine postoperative pain control. They worked well with physical therapy. They developed some acute blood loss anemia but remained asymptomatic. The hospital course was otherwise uncomplicated. They were subsequently able to be discharged on postoperative day [] once discharge arrangements were made with home health physical therapy. Mixing Plant Operator(s): None Procedure(s): Left total knee arthroplasty, 06/12/2024 Assessment/Plan: ASSESSMENT: Status post left total knee arthroplasty Acute blood loss anemia PLAN: See discharge instructions Discharge Instructions: Begin working with home health physical therapy. Dressing may be removed 06/14/2024 and left open to air. Showers ok allowing soap and water to run over the wound. Pat dry. Do not submerge wound in tub/pool. Do not apply ointments. Do not apply Betadine. Do not apply peroxide. Ice packs to decrease pain/swelling. Prescriptions have been sent to the pharmacy: *[place] 5/325mg 1-2 tab every 6 hours as needed for severe pain. (please call for refills) Cyclobenzaprine 5mg 1 tab every 8 hours as needed for muscle spasm pain. Colace 100mg 1 tab orally twice a day as needed for constipation. Resume your home dose of Eliquis to prevent blood clots. Meloxicam 0.5 mg one tab daily for edema. Call for a follow-up appointment in 2-3 weeks at [facility]. Home Medications: Active Scripts Hydrocodone/Acetaminophen (Hydrocodon-Acetaminophen 5-325) 5 Mg-325 Mg Tablet, 1-2 TAB PO Q4H PRN for MODERATE/SEVERE PAIN LEVEL, #56 TAB 0 Refills Prov:WILLIAMS DUKES MD 06/15/24 Reported Medications Acetaminophen (Tylenol Extra Strength) 500 Mg Tablet, 1000 MG PO AD PRN for PAIN, TAB 06/07/24 Flecainide Acetate (Flecainide Acetate) 50 Mg Tablet, 50 MG PO BID, TAB 06/07/24 Cetirizine HCl (Cetirizine HCl) 10 Mg Tab.chew, 1 TAB PO DAILY for allergy symptoms for 30 Days, #30 TAB 0 Refills 03/27/24 Levothyroxine Sodium (Levothyroxine Sodium) 25 Mcg Tablet, 25 MCG PO ACBKFST, TAB 03/14/24 [Vitamin B12] No Conflict Check, 1000 MCG PO DAILY 03/14/24 Apixaban (Eliquis) 5 Mg Tablet, 5 MG PO BID, TAB 03/14/24 Gabapentin (Neurontin) 300 Mg Capsule, 300 MG PO TID, CAP 09/16/23 Atorvastatin Calcium (Atorvastatin Calcium) 10 Mg Tablet, 10 MG PO HS, TAB 09/16/23 WILLIAMS DUKES MD Jun 12, 2024 15:22
[2024-06-12] MEDS ORDERED: ceFAZolin SODIUM 2 GM VIAL IVP SCH (16:30)
[2024-06-12] MEDS: INSULIN humuLIN R 100 UNIT/ML 3ML SQ SCH (16:30)
[2024-06-12] MEDS: acetaMINOPHEN 100 ML ONE (17:02)
[2024-06-12] MEDS: FAMOTIDINE 20MG VIAL IV ONE (17:02)
[2024-06-12] MEDS: ketOROlac 15MG/ML VIAL (15MG/ML) IV SCH ×2 (17:03→21:09)
[2024-06-12] MEDS: GABAPENTIN 300 MG CAPSULE PO SCH (17:03)
[2024-06-12] MEDS: 0.9%NACL 1000ML 1,000 ML IV SCH (17:20)
[2024-06-12] MEDS ORDERED: PHARMACY COMMUNICATION MISC SCH (17:30)
--- NOTE | 2024-06-12 17:55 | NUR ---
PT eval completed. Pt is 5/10 pain prior to eval. Pt wishes to transfer to commode. Eval completed. Pt is min assist x 2 for stand and transfer, min x1 for gait 15 ft. Pt able to urinate. Pt back to bed with call rivera, fall alarm, SCD and ice. Education provided on POC, DC plan, pain management and fall risk. Pt voices understanding. Pt has tray present and family.
[2024-06-12] MEDS: FLECAINIDE ACETATE 100 MG TABLET PO SCH (20:59)
[2024-06-12] MEDS: doCUSate SODIUM 100 MG CAP PO SCH (20:59)
[2024-06-12] MEDS: ceFAZolin SODIUM 2 GM VIAL IVP SCH (20:59)
[2024-06-12] MEDS: atorVAStatin 10 MG TABLET PO SCH (20:59)
[2024-06-12] MEDS ORDERED: ketOROlac 15MG/ML VIAL (15MG/ML) IV SCH (21:00)
[2024-06-12] MEDS: HYDROcodone/APAP 5/325 1 TAB TABLET PO PRN (22:55)
[2024-06-13] VITALS (8 sets, daily range): BP systolic 87–114; BP diastolic 48–65; PULSE 82–101; RESP 18–19; TEMP 97.1–98.3; O2SAT 97
[2024-06-13 05:19] LABS: HEMATOCRIT 33.3 % (36-48); MEAN CORPUSCULAR HEMOGLOBIN 30.1 pg (27.0-33.0); MEAN CORPUSCULAR VOLUME 91.2 fL (79-99); RED BLOOD CELL COUNT(AUTO) 3.65 MIL/uL (4.00-5.50); RED CELL DISTRIBUTION WIDTH 14.8 % (11.0-15.5); WHITE BLOOD COUNT (AUTO) 11.2 K/uL (4.8-10.8)
[2024-06-13 06:07] LABS: CREATININE 1.2 mg/dL (0.5-1.0); POTASSIUM 4.7 mmol/L (3.5-5.1)
[2024-06-13] MEDS: levoTHYROxine 25 MCG TABLET ONE (06:16)
[2024-06-13] MEDS: levoTHYROxine 25 MCG TABLET PO SCH (06:16)
--- NOTE | 2024-06-13 08:24 | PN ---
Ortho postop day one. This morning the patient is awake alert oriented. She is seated in a chair with operative extremity extended on footstool. She reports adequate pain control. Vital signs have been stable. Afebrile. Laboratory results reviewed. Noted to have a drop in hemoglobin and hematocrit as expected after TKA. Patient is asymptomatic and we will address as necessary with the protocol. Operative findings discussed with the patient. Voiding on her own. David bandage is removed and the anterior dressing is intact. Gastrocnemius soft nontender. Negative Homans. Distal neurovascular exam intact. She ambulated about 50 ft but therapy yesterday and is pending further physical therapy this morning. She is anticipating discharge to [facility] Assessment: Status post left total knee arthroplasty. Asymptomatic acute postoperative blood loss anemia. Plan: Continue with Dr. Oro's TKA protocol and discharge planning. Asymptomatic acute postoperative blood loss anemia. Vitals/Labs Vital Signs Date Time Temp Pulse Resp B/P (MAP) Pulse Ox O2 Delivery O2 Flow Rate FiO2 06/13/24 03:43 97.9 91 18 114/51 97 Room Air 21 06/12/24 20:00 0 Laboratory Tests 06/13/24 04:46 Medications Current Medications Cefazolin Sodium 2 gm STK-MED ONCE .ROUTE Last administered on 06/12/24at 11:10; Start 06/12/24 at 08:57; Stop 06/12/24 at 08:57; Status DC Sodium Chloride 1,000 ml @ As Directed STK-MED ONCE IV Last administered on 06/12/24at 09:51; Start 06/12/24 at 08:57; Stop 06/12/24 at 08:58; Status DC Tranexamic Acid 1,000 mg STK-MED ONCE .ROUTE; Start 06/12/24 at 09:38; Stop 06/12/24 at 09:39; Status DC Ketorolac Tromethamine 30 mg STK-MED ONCE .ROUTE Last administered on 06/12/24at 12:45; Start 06/12/24 at 09:39; Stop 06/12/24 at 09:39; Status DC Ropivacaine 150 mg STK-MED ONCE .ROUTE Last administered on 06/12/24at 12:45; Start 06/12/24 at 09:39; Stop 06/12/24 at 09:39; Status DC Acetaminophen 100 ml @ As Directed STK-MED ONCE .ROUTE; Start 06/12/24 at 10:10; Stop 06/12/24 at 10:10; Status DC Famotidine 20 mg STK-MED ONCE IV; Start 06/12/24 at 10:10; Stop 06/12/24 at 10:10; Status DC Lidocaine HCl 1 ml STK-MED ONCE IJ; Start 06/12/24 at 10:15; Stop 06/12/24 at 10:15; Status DC Propofol 200 mg STK-MED ONCE IV; Start 06/12/24 at 10:16; Stop 06/12/24 at 10:16; Status DC Rocuronium [place] 50 mg STK-MED ONCE .ROUTE; Start 06/12/24 at 10:16; Stop 06/12/24 at 10:16; Status DC Fentanyl Citrate 100 mcg STK-MED ONCE .ROUTE; Start 06/12/24 at 10:16; Stop 06/12/24 at 10:16; Status DC Ropivacaine 150 mg STK-MED ONCE .ROUTE; Start 06/12/24 at 10:22; Stop 06/12/24 at 10:22; Status DC Ketamine HCl 50 mg STK-MED ONCE .ROUTE; Start 06/12/24 at 10:22; Stop 06/12/24 at 10:22; Status DC Ondansetron HCl 4 mg STK-MED ONCE .ROUTE; Start 06/12/24 at 10:55; Stop 06/12/24 at 10:56; Status DC Dexamethasone Sodium Phosphate 10 mg STK-MED ONCE .ROUTE; Start 06/12/24 at 10:55; Stop 06/12/24 at 10:56; Status DC Phenylephrine HCl 10 mg STK-MED ONCE IV; Start 06/12/24 at 11:14; Stop 06/12/24 at 11:15; Status DC Sodium Chloride 1,000 ml @ 100 mls/hr Q10H IV Last administered on 06/12/24at 17:20; Start 06/12/24 at 11:30; Stop 06/13/24 at 11:29 Polyethylene Glycol 17 gm DAILY PO; Start 06/13/24 at 09:00; Stop 07/13/24 at 08:59 Bisacodyl 10 mg DAILY PRN RC; Start 06/15/24 at 11:30; Stop 07/15/24 at 11:29 Ketorolac Tromethamine 15 mg Q6H PRN IV; Start 06/13/24 at 11:30; Stop 06/18/24 at 11:29 Ferrous Fumarate 324 mg DAILY PRN PO; Start 06/12/24 at 11:30; Stop 07/12/24 at 11:29 Ondansetron HCl 4 mg Q6H PRN IVP; Start 06/12/24 at 11:30; Stop 07/12/24 at 11:29 Calcium Carbonate 500 mg Q12H PRN PO; Start 06/12/24 at 11:30; Stop 07/12/24 at 11:29 Diphenhydramine HCl 25 mg Q6H PRN IVP; Start 06/12/24 at 11:30; Stop 07/12/24 at 11:29 Insulin Human Regular INSULIN SLIDING SCAL... ACHS SQ; Start 06/12/24 at 11:30; Stop 07/12/24 at 11:29 Cefazolin Sodium 2 gm Q8H IVP; Start 06/12/24 at 16:30; Stop 06/12/24 at 17:15; Status DC Cyclobenzaprine HCl 5 mg Q8H PRN PO Last administered on 06/12/24at 14:36; Start 06/12/24 at 11:30; Stop 07/12/24 at 11:29 Gabapentin 100 mg TID PO Last administered on 06/12/24at 21:00; Start 06/12/24 at 14:00; Stop 07/12/24 at 13:59 Ketorolac Tromethamine 15 mg Q8H IV; Start 06/12/24 at 11:30; Stop 06/12/24 at 17:14; Status DC Docusate Sodium 100 mg BID PO Last administered on 06/12/24at 20:59; Start 06/12/24 at 21:00; Stop 07/12/24 at 20:59 Potassium Chloride 100 ml @ 100 mls/hr AD PRN IV; Start 06/12/24 at 11:30; Stop 07/12/24 at 11:29 Potassium Chloride 20 meq AD PRN PO; Start 06/12/24 at 11:30; Stop 07/12/24 at 11:29 Potassium Chloride 20 meq AD PRN PO; Start 06/12/24 at 11:30; Stop 07/12/24 at 11:29 Tramadol HCl 50 mg Q6H PRN PO; Start 06/12/24 at 11:30; Stop 06/17/24 at 11:29 Acetaminophen/ Hydrocodone Bitart Q4H PRN PO Last administered on 06/12/24at 22:55; Start 06/12/24 at 11:30; Stop 06/17/24 at 11:29 Atorvastatin Calcium 10 mg HS PO Last administered on 06/12/24at 20:59; Start 06/12/24 at 21:00; Stop 07/12/24 at 20:59 Gabapentin 300 mg TID PO Last administered on 06/12/24at 21:00; Start 06/12/24 at 14:00; Stop 07/12/24 at 13:59 Levothyroxine Sodium 25 mcg SYN PO Last administered on 06/13/24at 06:16; Start 06/13/24 at 06:30; Stop 07/13/24 at 06:29 Cetirizine HCl 10 mg DAILY PO; Start 06/13/24 at 09:00; Stop 07/13/24 at 08:59 Flecainide Acetate 50 mg BID PO Last administered on 06/12/24at 20:59; Start 06/12/24 at 21:00; Stop 07/12/24 at 20:59 Vitamin B Complex 1,000 mcg DAILY PO; Start 06/13/24 at 09:00; Stop 07/13/24 at 08:59 Glycopyrrolate 1 mg STK-MED ONCE .ROUTE; Start 06/12/24 at 13:10; Stop 06/12/24 at 13:11; Status DC Neostigmine Methylsulfate 10 mg STK-MED ONCE IV; Start 06/12/24 at 13:10; Stop 06/12/24 at 13:11; Status DC Hydralazine HCl 20 mg STK-MED ONCE .ROUTE; Start 06/12/24 at 13:18; Stop 06/12/24 at 13:18; Status DC Fentanyl Citrate 100 mcg STK-MED ONCE .ROUTE Last administered on 06/12/24at 14:00; Start 06/12/24 at 13:57; Stop 06/12/24 at 13:57; Status DC Acetaminophen/ Hydrocodone Bitart 1 tab STK-MED ONCE .ROUTE Last administered on 06/12/24at 14:25; Start 06/12/24 at 14:22; Stop 06/12/24 at 14:22; Status DC Ketorolac Tromethamine 15 mg STK-MED ONCE .ROUTE Last administered on 06/12/24at 14:33; Start 06/12/24 at 14:30; Stop 06/12/24 at 14:31; Status DC Pharmacy Profile Note 1 each ONCE MISC; Start 06/12/24 at 17:30; Stop 06/12/24 at 17:16; Status DC Ketorolac Tromethamine 15 mg Q8H IV; Start 06/12/24 at 21:00; Stop 06/12/24 at 17:14; Status DC Ketorolac Tromethamine 15 mg Q8H IV Last administered on 06/13/24at 05:58; Start 06/12/24 at 22:30; Stop 06/13/24 at 14:31 Cefazolin Sodium 2 gm Q8H IVP Last administered on 06/13/24at 05:58; Start 06/12/24 at 21:00; Stop 06/13/24 at 05:01; Status DC Ketorolac Tromethamine 15 mg STK-MED ONCE .ROUTE; Start 06/12/24 at 20:55; Stop 06/12/24 at 20:55; Status DC Levothyroxine Sodium 25 mcg STK-MED ONCE .ROUTE; Start 06/13/24 at 05:29; Stop 06/13/24 at 05:32; Status DC ILANA MCMANUS NP Jun 13, 2024 08:24
[2024-06-13] MEDS: polyETHYLene GLYCol 3350 17 GM POWD.PACK PO SCH (09:36)
[2024-06-13] MEDS: ceTIRIzine HCL 5 MG TABLET PO SCH (09:37)
[2024-06-13] MEDS: CYANOCOBALAMIN (VITAMIN B-12) 1,000 MCG TABLET PO SCH (09:37)
--- NOTE | 2024-06-13 12:50 | NUR ---
ORTHO COORDINATOR: TEACHING REGARDING DVT AND PNEUMONIA PREVENTION, PAIN EXPECTATIONS, PAIN MANAGEMENT. PATIENT UP TO CHAIR. SPOUSE AT BEDSIDE. B SCD SLEEVES IN ROOM, SCD MACHINE IN ROOM. INCENTIVE SPIROMETER AT BEDSIDE. PATIENT RETURN DEMONSTRATED PROPER USE OF INCENTIVE SPIROMETER AND FOOT FLEXION AND EXTENSION EXERCISES. PATIENT HAD R TKA IN AUGUST 2023. PAIN EXPECTATIONS REALISTIC. REMINDING PATIENT PAIN MEDICATION IS PROVIDED UPON REQUEST. REVIEWED NUMERIC PAIN SCALE. INFORMED DIFFERENT MEDICATIONS WERE AVAILABLE TO COVER PAIN FROM 1-10. PATIENT VERBALIZED UNDERSTANDING. PATIENT DESIRES TO USE SAME HOME [facility]ALTH [facility]YS[facility] SERVICES IN AUGUST. DOES NOT NEED DME. NO ADDITIONAL QUESTIONS/CONCERNS AT THIS TIME.
--- NOTE | 2024-06-13 17:54 | NUR ---
DCP Pt awake, alert, oriented x3 lives with spouse Jovi Copeland [phone]. Pt has walker and ramp available. Anticipates discharge is for home with Home health. Addendum: 06/13/[address] CÁRDENAS RN CM Amended: Links added.
[2024-06-13] MEDS: ketOROlac 15MG/ML VIAL (15MG/ML) IV PRN (20:23)
[2024-06-14 03:41] VITALS: BP 112/68; PULSE 86; RESP 18; TEMP 97.6
[2024-06-14 07:30] VITALS: BP 122/72; PULSE 86; RESP 18; TEMP 97.9
[2024-06-14 08:00] VITALS: O2SAT 98
[2024-06-14 12:00] VITALS: BP 113/69; PULSE 88; RESP 18; TEMP 97.8
--- NOTE | 2024-06-14 14:45 | NUR ---
ORTHO COORDINATOR: REINFORCED TEACHING. PATIENT IN BED, SIGNIFICANT OTHER AT BEDSIDE. PATIENT REPORTS PHYSICAL THERAPY WENT WELL TODAY. PATIENT RATES CURRENT PAIN 6/10. ASKED IF SHE CALLED FOR PAIN MEDICATION. PATIENT DID NOT. REMINDED PATIENT PAIN MEDICATION MUST BE REQUESTED. CALL LIGHT PRESSED. PATIENT UNDERWENT R TKA IN AUGUST 2023, REPORTS MORE PAIN WITH LEFT KNEE. REINFORCED PAIN MANAGEMENT. NO ADDITIONAL QUESTIONS/CONCERNS AT THIS TIME.
[2024-06-14 16:00] VITALS: BP 115/80; PULSE 86; RESP 18; TEMP 97.6
--- NOTE | 2024-06-14 18:28 | PN ---
Ortho postop day two Patient reports she was doing well. States she feels she needs ice more often. She reports she is ambulating well with physical therapy. She reports muscle spasm type pain is present. She was not asking for this medication very much though. Case management reports they have tried reaching out seven different [place] health companies and are unable to find one that covers her area and is in network. Vital signs stable, afebrile Alert and oriented x3 no acute distress Lying in semi reclined position in bed finishing dinner Left lower extremity -surgical dressing in place with a central region of mild drainage -blistering forming along the medial side, when large lesion with unroofing occurring -significant diffuse edema, the normal amount of postoperative warmth was palpable -moderate amount of ecchymosis present -calf soft nontender, negative Homans, edema present in lower leg -gets to within 5 of full extension with a encouragement Ambulated 100 ft with physical therapy today Due to lack of home services available, case management we will begin referral to [facility]: Postop day two status post left total knee arthroplasty doing well but with significant warmth and inflammatory response Acute blood loss anemia, asymptomatic -ice packs should be renewed every 2 hours -we will start the patient on scheduled anti-inflammatory medication -surgical dressing can be removed tonight or tomorrow and patient may shower allowing soap and water to run over the wounds. Pat dry. Triple antibiotic ointment maybe applied over the open blisters only, NOT on the surgical incision. -continue routine postoperative care and discharge planning -we will hold DVT prophylaxis one more day to allow for decreased swelling and bleeding into the joint Vitals/Labs Vital Signs Date Time Temp Pulse Resp B/P (MAP) Pulse Ox O2 Delivery O2 Flow Rate FiO2 06/14/24 16:00 97.5 86 18 115/80 98 Room Air 06/14/24 07:30 21 06/13/24 20:00 0 Medications Current Medications Cefazolin Sodium 2 gm STK-MED ONCE .ROUTE Last administered on 06/12/24at 11:10; Start 06/12/24 at 08:57; Stop 06/12/24 at 08:57; Status DC Sodium Chloride 1,000 ml @ As Directed STK-MED ONCE IV Last administered on 06/12/24at 09:51; Start 06/12/24 at 08:57; Stop 06/12/24 at 08:58; Status DC Tranexamic Acid 1,000 mg STK-MED ONCE .ROUTE; Start 06/12/24 at 09:38; Stop 06/12/24 at 09:39; Status DC Ketorolac Tromethamine 30 mg STK-MED ONCE .ROUTE Last administered on 06/12/24at 12:45; Start 06/12/24 at 09:39; Stop 06/12/24 at 09:39; Status DC Ropivacaine 150 mg STK-MED ONCE .ROUTE Last administered on 06/12/24at 12:45; Start 06/12/24 at 09:39; Stop 06/12/24 at 09:39; Status DC Acetaminophen 100 ml @ As Directed STK-MED ONCE .ROUTE; Start 06/12/24 at 10:10; Stop 06/12/24 at 10:10; Status DC Famotidine 20 mg STK-MED ONCE IV; Start 06/12/24 at 10:10; Stop 06/12/24 at 10:10; Status DC Lidocaine HCl 1 ml STK-MED ONCE IJ; Start 06/12/24 at 10:15; Stop 06/12/24 at 10:15; Status DC Propofol 200 mg STK-MED ONCE IV; Start 06/12/24 at 10:16; Stop 06/12/24 at 10:16; Status DC Rocuronium [place] 50 mg STK-MED ONCE .ROUTE; Start 06/12/24 at 10:16; Stop 06/12/24 at 10:16; Status DC Fentanyl Citrate 100 mcg STK-MED ONCE .ROUTE; Start 06/12/24 at 10:16; Stop 06/12/24 at 10:16; Status DC Ropivacaine 150 mg STK-MED ONCE .ROUTE; Start 06/12/24 at 10:22; Stop 06/12/24 at 10:22; Status DC Ketamine HCl 50 mg STK-MED ONCE .ROUTE; Start 06/12/24 at 10:22; Stop 06/12/24 at 10:22; Status DC Ondansetron HCl 4 mg STK-MED ONCE .ROUTE; Start 06/12/24 at 10:55; Stop 06/12/24 at 10:56; Status DC Dexamethasone Sodium Phosphate 10 mg STK-MED ONCE .ROUTE; Start 06/12/24 at 10:55; Stop 06/12/24 at 10:56; Status DC Phenylephrine HCl 10 mg STK-MED ONCE IV; Start 06/12/24 at 11:14; Stop 06/12/24 at 11:15; Status DC Sodium Chloride 1,000 ml @ 100 mls/hr Q10H IV Last administered on 06/12/24at 17:20; Start 06/12/24 at 11:30; Stop 06/13/24 at 11:29; Status DC Polyethylene Glycol 17 gm DAILY PO Last administered on 06/14/24at 08:42; Start 06/13/24 at 09:00; Stop 07/13/24 at 08:59 Bisacodyl 10 mg DAILY PRN RC; Start 06/15/24 at 11:30; Stop 07/15/24 at 11:29 Ketorolac Tromethamine 15 mg Q6H PRN IV Last administered on 06/13/24at 20:23; Start 06/13/24 at 11:30; Stop 06/18/24 at 11:29 Ferrous Fumarate 324 mg DAILY PRN PO; Start 06/12/24 at 11:30; Stop 07/12/24 at 11:29 Ondansetron HCl 4 mg Q6H PRN IVP; Start 06/12/24 at 11:30; Stop 07/12/24 at 11:29 Calcium Carbonate 500 mg Q12H PRN PO; Start 06/12/24 at 11:30; Stop 07/12/24 at 11:29 Diphenhydramine HCl 25 mg Q6H PRN IVP; Start 06/12/24 at 11:30; Stop 07/12/24 at 11:29 Insulin Human Regular INSULIN SLIDING SCAL... ACHS SQ; Start 06/12/24 at 11:30; Stop 07/12/24 at 11:29 Cefazolin Sodium 2 gm Q8H IVP; Start 06/12/24 at 16:30; Stop 06/12/24 at 17:15; Status DC Cyclobenzaprine HCl 5 mg Q8H PRN PO Last administered on 06/12/24at 14:36; Start 06/12/24 at 11:30; Stop 07/12/24 at 11:29 Gabapentin 100 mg TID PO Last administered on 06/14/24at 15:13; Start 06/12/24 at 14:00; Stop 07/12/24 at 13:59 Ketorolac Tromethamine 15 mg Q8H IV; Start 06/12/24 at 11:30; Stop 06/12/24 at 17:14; Status DC Docusate Sodium 100 mg BID PO Last administered on 06/14/24at 08:36; Start 06/12/24 at 21:00; Stop 07/12/24 at 20:59 Potassium Chloride 100 ml @ 100 mls/hr AD PRN IV; Start 06/12/24 at 11:30; Stop 07/12/24 at 11:29 Potassium Chloride 20 meq AD PRN PO; Start 06/12/24 at 11:30; Stop 07/12/24 at 11:29 Potassium Chloride 20 meq AD PRN PO; Start 06/12/24 at 11:30; Stop 07/12/24 at 11:29 Tramadol HCl 50 mg Q6H PRN PO; Start 06/12/24 at 11:30; Stop 06/17/24 at 11:29 Acetaminophen/ Hydrocodone Bitart Q4H PRN PO Last administered on 06/14/24at 15:14; Start 06/12/24 at 11:30; Stop 06/17/24 at 11:29 Atorvastatin Calcium 10 mg HS PO Last administered on 06/13/24at 20:17; Start 06/12/24 at 21:00; Stop 07/12/24 at 20:59 Gabapentin 300 mg TID PO Last administered on 06/14/24at 15:13; Start 06/12/24 at 14:00; Stop 07/12/24 at 13:59 Levothyroxine Sodium 25 mcg SYN PO Last administered on 06/14/24at 05:46; Start 06/13/24 at 06:30; Stop 07/13/24 at 06:29 Cetirizine HCl 10 mg DAILY PO Last administered on 06/14/24at 08:36; Start 06/13/24 at 09:00; Stop 07/13/24 at 08:59 Flecainide Acetate 50 mg BID PO Last administered on 06/14/24at 08:38; Start 06/12/24 at 21:00; Stop 07/12/24 at 20:59 Vitamin B Complex 1,000 mcg DAILY PO Last administered on 06/14/24at 08:37; St art 06/13/24 at 09:00; Stop 07/13/24 at 08:59 Glycopyrrolate 1 mg STK-MED ONCE .ROUTE; Start 06/12/24 at 13:10; Stop 06/12/24 at 13:11; Status DC Neostigmine Methylsulfate 10 mg STK-MED ONCE IV; Start 06/12/24 at 13:10; Stop 06/12/24 at 13:11; Status DC Hydralazine HCl 20 mg STK-MED ONCE .ROUTE; Start 06/12/24 at 13:18; Stop 06/12/24 at 13:18; Status DC Fentanyl Citrate 100 mcg STK-MED ONCE .ROUTE Last administered on 06/12/24at 14:00; Start 06/12/24 at 13:57; Stop 06/12/24 at 13:57; Status DC Acetaminophen/ Hydrocodone Bitart 1 tab STK-MED ONCE .ROUTE Last administered on 06/12/24at 14:25; Start 06/12/24 at 14:22; Stop 06/12/24 at 14:22; Status DC Ketorolac Tromethamine 15 mg STK-MED ONCE .ROUTE Last administered on 06/12/24at 14:33; Start 06/12/24 at 14:30; Stop 06/12/24 at 14:31; Status DC Pharmacy Profile Note 1 each ONCE MISC; Start 06/12/24 at 17:30; Stop 06/12/24 at 17:16; Status DC Ketorolac Tromethamine 15 mg Q8H IV; Start 06/12/24 at 21:00; Stop 06/12/24 at 17:14; Status DC Ketorolac Tromethamine 15 mg Q8H IV Last administered on 06/13/24at 14:02; Start 06/12/24 at 22:30; Stop 06/13/24 at 14:31; Status DC Cefazolin Sodium 2 gm Q8H IVP Last administered on 06/13/24at 05:58; Start 06/12/24 at 21:00; Stop 06/13/24 at 05:01; Status DC Ketorolac Tromethamine 15 mg STK-MED ONCE .ROUTE; Start 06/12/24 at 20:55; Stop 06/12/24 at 20:55; Status DC Levothyroxine Sodium 25 mcg STK-MED ONCE .ROUTE; Start 06/13/24 at 05:29; Stop 06/13/24 at 05:32; Status DC WILLIAMS DUKES MD Jun 14, 2024 18:28
[2024-06-14 20:00] VITALS: O2SAT 97
[2024-06-14] MEDS: MELOXICAM 7.5 MG TABLET PO SCH (20:51)
[2024-06-15] VITALS: BP 107/49; PULSE 87; RESP 17; TEMP 98.9
[2024-06-15 04:00] VITALS: BP 143/59; PULSE 64; RESP 18; TEMP 98.4
[2024-06-15 08:00] VITALS: O2SAT 91
[2024-06-15 08:28] VITALS: BP 128/64; PULSE 67; RESP 22; TEMP 98.3
[2024-06-15 12:00] VITALS: BP 101/65; PULSE 82; RESP 18; TEMP 98.9
[2024-06-15] MEDS ORDERED: MELO-106 PO (13:23)
[2024-06-15] MEDS ORDERED: HYDR-4060 PO (13:23)
[2024-06-15] MEDS ORDERED: DOCU-116 PO (13:23)
[2024-06-15] MEDS ORDERED: CYCL-309 PO (13:23)
--- NOTE | 2024-06-15 13:59 | NUR ---
[facility] [phone] SPOKE TO REP PATIENT ACCEPTED TO [facility]. LET DR. DUKES AND NURSE KNOW. FELICIA PENDING WILL GO VIA [facility]. COULD NOT GO HOME WITH HOME HEALTH DO TO COPAYS AND DEDUCTIBLES. Addendum: 06/15/24 at 1403 by KRISTIE MEZA RN CM Amended: Links added.
[2024-06-15] MEDS: BisaCODYL 10 MG SUPP.RECT RC PRN (14:37)
--- NOTE | 2024-06-15 14:40 | NUR ---
ORTHO COORDINATOR: REINFORCED PREVIOUS TEACHING. PATIENT IN BED. SURGICAL DRESSING REMOVED. SUTURE LINE CLEAN, DRY AND INTACT. REVIEWED CARE INSTRUCTIONS FOR BLISTERS WITH PATIENT. ANTIBIOTIC OINTMENT TO BE APPLIED TO BLISTERS ONLY. NOT TO SURGICAL INCISION. PATIENT VERBALIZED UNDERSTANDING. NO QUESTIONS/CONCERNS.
[2024-06-15] MEDS ORDERED: NEOMY SULF/BACITRAC ZN/POLY OINT 30GM TUBE TP SCH (15:00)
[2024-06-15] MEDS: NEOMY SULF/BACITRAC ZN/POLY OINT 30GM TUBE TP ONE (15:48)
--- NOTE | 2024-06-15 15:57 | NUR ---
REPORT CALLED GIVEN TO EUSEBIO DODSON, FROM [facility]. IV REMOVED INTACT. ALL QUESTIONS AND CONCERNS ANSWERED.
[2024-06-15 16:00] VITALS: BP 129/60; PULSE 51; RESP 19; TEMP 98
--- NOTE | 2024-06-15 16:00 | NUR ---
DRESSING BLISTER MEDICATED PER ORDER AND PICTURES TAKEN. ONE BLISTER MEASURE 4X2X.01 CM. 2ND BLISTER MEASURE 2X1X.01.
--- NOTE | 2024-06-15 17:35 | NUR ---
PATIENT DISCHARGE TO [facility] VIA [facility]. ALL QUESTIONS AND CONCERN ANSWERED.
== END 2024-06-15 17:35 ==
LOC: DAH 08:35 → DAHIP 08:36 → DAH 08:36 → 4DH 16:35
PROVIDERS: ADMIT Student in an Organized Health Care Education/Training Program; ATTEND Student in an Organized Health Care Education/Training Program
DX: M17.12 Unilateral primary osteoarthritis, left knee (principal); M25.562 Pain in left knee; I10 Essential (primary) hypertension; D62 Acute posthemorrhagic anemia; E03.9 Hypothyroidism, unspecified; E11.9 Type 2 diabetes mellitus without complications; I48.0 Paroxysmal atrial fibrillation; Z79.899 Other long term (current) drug therapy; Z98.890 Other specified postprocedural states
CPT/HCPCS: 82040; 80048 ×2; 85025; 85610; 85730; 84134; 86140; 81003; 36415 ×2; 87641; 27447; 64447; 96365; 96366 ×2; 96375; 82948 ×12; 73560; 97161; 97116 ×7; 97530 ×9; 96376; 85027; G0378 ×69; A4600; A4223 ×2; A4663; J3490 ×5; J3010 ×2; J1100; J7030; J0360; J2704; J2405; J1885 ×6; J2710; J2795 ×2; J2371; J0690 ×3; A4649 ×2; C1713; C1776; A6255; A5120; A4215; A4222; A4221; A4216

== ENCOUNTER → 2024-12-08 | Outpatient (CLI) | payer OTHER, MEDICARE ==
[~2024-12-08] MED LIST changes: -ACET-2743 PO; -CETI10TA87 PO; -GABA300C PO
--- NOTE | 2024-12-09 06:32 | HMCIMG ---
EXAMINATION: ULTRASOUND OF THE RETROPERITONEUM. CLINICAL HISTORY: Hematuria unspecified. COMPARISON: None. TECHNIQUE: Real-time grayscale ultrasound images of the kidneys. FINDINGS: The kidneys are normal in caliber, the right kidney measures 9.4 x 3.7 x 3.4 cm and the left kidney measures 9.6 x 4.2 x 4.9 cm in its craniocaudal, AP, and transverse dimensions respectively. There is normal renal cortical thickness, and cortical echogenicity. There is no renal calculus or hydronephrosis. The urinary bladder is normal in caliber and wall thickness. There are no calculi in the urinary bladder. Pre-void volume is 194 cc and post-void volume is 0 cc. IMPRESSION: No significant abnormality. /Alexandra
== END | disposition home or self-care (01) ==
LOC: RAH 08:42
PROVIDERS: ATTEND Internal Medicine
DX: R31.9 Hematuria, unspecified (principal)
CPT/HCPCS: 76770